=== PATIENT | male | born 1960 | race Caucasian/White ===

== ENCOUNTER 2016-12-21 10:34 | Inpatient (IN) | payer OTHER ==
[2016-12-21] MEDS ORDERED: LANTUS SC SCH (12:32)
[2016-12-21] MEDS: NS 1000 ML 1,000 ML IV SCH ×2 (12:48→20:23)
[2016-12-21 12:50] LABS: ABG ALLEN TEST POS; ABG BASE EXCESS 2.4 mmol/L (-2.0-2.0); ABG HCO3 26.4 mmol/L (22-26)
[2016-12-21 13:30] LABS: BASOPHILS # (AUTO) 0.1 X10^3/uL (0.0-0.1); BASOPHILS % (AUTO) 0.7 % (0.2-1.0); EOSINOPHILS # (AUTO) 0.1 x10^3/uL (0.0-0.2); EOSINOPHILS % (AUTO) 1.2 % (0.9-2.9); HEMATOCRIT 39.4 % (42.0-54.0); LYMPHOCYTES # (AUTO) 2.4 X10^3/uL (1.3-2.9); LYMPHOCYTES % (AUTO) 28.5 % (21.0-51.0); MEAN CORPUSCULAR HEMOGLOBIN 30.3 pg (27.0-34.0); MEAN CORPUSCULAR HGB CONC 35.5 g/dL (33.0-35.0); MEAN CORPUSCULAR VOLUME 85.4 fL (80.0-100.0); MEAN PLATELET VOLUME 7.8 fL (7.4-11.0); MONOCYTES # (AUTO) 0.8 x10^3/uL (0.3-0.8); NEUTROPHILS % (AUTO) 60.6 % (42.0-75.0); PLATELET COUNT 207 X10^3/uL (150.0-450.0); RED BLOOD COUNT 4.61 X10^6/uL (4.7-6.0); WHITE BLOOD COUNT 8.3 X10^3/uL (3.6-10.0)
[2016-12-21 13:44] LABS: ALANINE AMINOTRANSFERASE 28 Units/L (12-78); ALBUMIN 3.3 g/dL (3.4-5.0); ALKALINE PHOSPHATASE 87 Units/L (46-116); ASPARTATE AMINO TRANSFERASE 13 Units/L (15-37); BLOOD UREA NITROGEN 24 mg/dL (7-18); CALCIUM 8.7 mg/dL (8.5-10.1); CARBON DIOXIDE 28.4 mmol/L (21-32); CHLORIDE 100 mmol/L (98-107); COR CA(FOR HYPOALB) 9.3 mg/dL (8.5-10.1); COR NA(FOR HYPERGLY) 142 mmol/L (136-145); CREATININE 1.28 mg/dL (0.70-1.30); GLUCOSE 389 mg/dL (65-99); SODIUM 135 mmol/L (136-145); eGFR BLACK RACES > 60 (>60); eGFR NON BLACK RACES > 60 (>60)
[2016-12-21] MEDS: ZOFRAN INJ 4 MG VIAL IVP SCH ×3 (13:56→23:49)
[2016-12-21] MEDS: PEPCID 20 MG IV PREMIX* 20 MG/50 ML BAG IV SCH ×2 (13:56→20:23)
[2016-12-21] MEDS: PROTONIX INJ 40 MG VIAL IVP SCH ×2 (13:56→20:23)
[2016-12-21] MEDS: NORCO 10/325 TAB PO PRN ×2 (15:25→21:38)
[2016-12-21] MEDS ORDERED: PREVNAR 13 IM ONE (16:00)
[2016-12-21] MEDS ORDERED: CATAPRES-TTS-2 TD SCH (16:00)
[2016-12-21 16:11] LABS: BILIRUBIN,URINE NEGATIVE (NEGATIVE); BLOOD/HEMOGLOBIN,URINE NEGATIVE (NEGATIVE); GLUCOSE, URINE 4+ (NEGATIVE); KETONES,URINE 1+ (NEGATIVE); LEUKOCYTE ESTERASE ,URINE NEGATIVE (NEGATIVE); NITRITES,URINE NEGATIVE (NEGATIVE); PROTEIN,URINE 3+ (NEGATIVE); UROBILINOGEN,URINE NORMAL (NORMAL)
[2016-12-21] MEDS ORDERED: ULTRAM PO PRN (16:11)
[2016-12-21 16:18] LABS: APPEARANCE,URINE CLEAR (CLEAR); BACTERIA,URINE TRACE /HPF (NEGATIVE); COLOR,URINE YELLOW (YELLOW); RBC,URINE NONE SEEN /HPF (NEGATIVE); SQUAMOUS EPITHELIAL CELL,UR RARE /HPF (NEGATIVE)
[2016-12-21 16:26] LABS: AMYLASE 38 Units/L (25-115); LIPASE 224 Units/L (73-393)
[2016-12-21] MEDS: HumuLIN R SUBCUT PRN (17:15)
--- NOTE | 2016-12-21 17:33 | DR.UPDATE ---
H&P Update History and Physical Update: was seen in our office today. A H&P was completed prior to admission. Patient has been seen and examined with no changes noted. Changes noted: NO Yes with the following:
[2016-12-21] MEDS ORDERED: NS 100 ML IV 100 ML IV ONE (18:51)
[2016-12-21] MEDS: SNACK - Diabetic Appropriate PO SCH (19:53)
--- NOTE | 2016-12-21 19:57 | CT ---
CT abdomen and pelvis with contrast Indication: Abdominal pain with constipation and diarrhea. Nausea. Technique: Helical images through the abdomen and pelvis after IV and oral contrast. Coronal and sag ittal reformats provided. Comparison: No similar priors currently available. Review of bone windows shows minimal hip degenerative change without destructive osseous lesion. Finch ited images through lower chest shows Coronary artery calcifications, fairly pronounced. Heart size is prominent. Abdomen: Numerous hepatic cysts are noted, most pronounced in the left lobe of the liver. Gallbladde r is absent. Numerous bilateral renal cysts are noted, with contrast being excreted normally by the kidneys otherwise. Extensive colonic diverticulosis is seen without convincing evidence of acute div erticulitis. Appendix is normal. Vasculature shows scattered plaque. The spleen, stomach, pancreas, adrenal glands and small bowel are normal without obstruction to the flow of contrast. Small fat con taining umbilical hernia noted. Pelvis: Urinary bladder and rectum are normal. Prostate gland is normal. Impression: 1. No acute abnormality to explain the patient's symptoms. Noninflamed numerous colonic diverticula noted. 2. Borderline enlarged heart with extensive Coronary artery calcifications. 3. Numerous renal cysts and hepatic cyst. Autosomal dominant polycystic kidney disease is possible. Reported By:
[2016-12-21] MEDS: LYRICA CAP 50 MG PO SCH (20:22)
[2016-12-21] MEDS: COZAAR PO SCH (20:22)
[2016-12-21] MEDS: ZANTAC PO SCH (20:23)
[2016-12-21] MEDS: ZOCOR TAB 40 MG PO SCH (20:23)
[2016-12-21] MEDS ORDERED: MILK OF MAGNESIA PO PRN (20:53)
[2016-12-21] MEDS ORDERED: COLACE CAP 100 MG PO PRN (20:53)
[2016-12-21] MEDS ORDERED: GLUCOPHAGE PO SCH (21:00)
[2016-12-21] MEDS ORDERED: PATIENT'S HOME MEDICATION (Losartan Potassium [Cozaar] 50 MG) PO SCH (21:00)
[2016-12-21] MEDS: INDOCIN CAP 25 MG PO SCH (21:38)
[2016-12-22] MEDS: INDOCIN CAP 25 MG PO SCH (05:07)
[2016-12-22] MEDS: NORCO 10/325 TAB PO PRN ×2 (05:20→17:00)
[2016-12-22] MEDS: NS 1000 ML 1,000 ML IV SCH ×3 (05:30→20:40)
[2016-12-22] MEDS: ZOFRAN INJ 4 MG VIAL IVP SCH ×3 (05:31→17:56)
[2016-12-22 06:07] LABS: ALANINE AMINOTRANSFERASE 28 Units/L (12-78); ALBUMIN 3.1 g/dL (3.4-5.0); ALKALINE PHOSPHATASE 85 Units/L (46-116); ASPARTATE AMINO TRANSFERASE 20 Units/L (15-37); BLOOD UREA NITROGEN 16 mg/dL (7-18); CALCIUM 8.4 mg/dL (8.5-10.1); CHLORIDE 105 mmol/L (98-107); COR CA(FOR HYPOALB) 9.1 mg/dL (8.5-10.1); CREATININE 0.94 mg/dL (0.70-1.30); GLUCOSE 70 mg/dL (65-99); SODIUM 140 mmol/L (136-145); TOTAL PROTEIN 6.8 g/dL (6.4-8.2); eGFR BLACK RACES > 60 (>60); eGFR NON BLACK RACES > 60 (>60)
[2016-12-22 06:11] LABS: BASOPHILS % (AUTO) 0.4 % (0.2-1.0); EOSINOPHILS # (AUTO) 0.2 x10^3/uL (0.0-0.2); EOSINOPHILS % (AUTO) 2.2 % (0.9-2.9); HEMATOCRIT 40.4 % (42.0-54.0); HEMOGLOBIN 14.2 g/dL (13.5-18.0); LYMPHOCYTES # (AUTO) 4.1 X10^3/uL (1.3-2.9); LYMPHOCYTES % (AUTO) 37.4 % (21.0-51.0); MEAN CORPUSCULAR HEMOGLOBIN 30.3 pg (27.0-34.0); MEAN CORPUSCULAR HGB CONC 35.1 g/dL (33.0-35.0); MEAN CORPUSCULAR VOLUME 86.2 fL (80.0-100.0); MEAN PLATELET VOLUME 8.1 fL (7.4-11.0); MONOCYTES # (AUTO) 1.2 x10^3/uL (0.3-0.8); MONOCYTES % (AUTO) 10.5 % (0.0-13.0); NEUTROPHILS # (AUTO) 5.4 x10^3/uL (2.2-4.8); NEUTROPHILS % (AUTO) 49.5 % (42.0-75.0); PLATELET COUNT 215 X10^3/uL (150.0-450.0); RED BLOOD COUNT 4.69 X10^6/uL (4.7-6.0); RED CELL DISTRIBUTION WIDTH 13.2 % (11.6-16.5)
[2016-12-22 07:21] VITALS: BMI 41.0
[2016-12-22] MEDS: ZANTAC PO SCH (08:37)
[2016-12-22] MEDS: COZAAR PO SCH ×2 (08:38→09:40)
[2016-12-22] MEDS: PEPCID 20 MG IV PREMIX* 20 MG/50 ML BAG IV SCH ×2 (08:38→20:34)
[2016-12-22] MEDS: PROTONIX INJ 40 MG VIAL IVP SCH ×2 (08:38→20:25)
[2016-12-22] MEDS ORDERED: PHENERGAN INJ 25 MG IM PRN (09:04)
[2016-12-22] MEDS: PROCARDIA XL PO SCH (09:40)
[2016-12-22] MEDS ORDERED: PHARMACY CONSULT - TPN XX SCH (10:00)
[2016-12-22] MEDS: PROCALAMINE 3 % 1,000 ML IV SCH (14:07)
[2016-12-22] MEDS: SNACK - Diabetic Appropriate PO SCH (20:26)
[2016-12-22] MEDS: ZOCOR TAB 40 MG PO SCH ×2 (20:36→20:37)
[2016-12-22] MEDS: LYRICA CAP 50 MG PO SCH (20:37)
[2016-12-22] MEDS ORDERED: LANTUS SC SCH ×2 (21:00)
[2016-12-22] MEDS: CHECK PATCH XX SCH (21:06)
--- NOTE | 2016-12-22 21:31 | PCM.PROG ---
Progress Note - Progress Note for Day of Date: 12/22/16 - Subjective Subjective: IS ALERT AND ORIENTED ON MORNING ROUNDS. HE IS SITTING UP IN BED WITH AT BEDSIDE. HE CONTINUES WITH COMPLAINTS OF NAUSEA, VOMITING, AND DIFFUSE ABDOMINAL PAIN. HE DENIES DIARRHEA. LUNGS ARE CLEAR BILATERALLY TO AUSCULTATION. BOWEL SOUNDS ARE NORMAL IN ALL QUADRANTS. VITALS THIS AM ARE 98.9- 81-15-99%-172/96. CBC WNL EXCEPT WBC 11.0, RBC 4.69, HCT 40.4. CMP WNL EXCEPT CALCIUM 8.4, ALBUMIN 3.1. H-PYLORI POSITIVE. CT OBTAINED YESTERDAY REPORTED NO ACUTE ABNORMALITY, NONINFLAMED NUMEROUS COLONIC DIVERTICULA, BORDERLINE ENLARGED HEART WITH EXTENSIVE CORONARY ARTERY CALCIFICATIONS, NUMEROUS RENAL CYST AND HEPATIC CYST. WE WILL DECREASE LANTUS TO 25 UNITS AT HS, START TPN, PHENERGAN 25MG IM, AND ORDER A GASTRIC EMPTY SCAN ON TUESDAY. WE PLAN TO RECHECK LABS AND FOLLOW UP WITH PATIENT IN AM. - Past Medical Family Social History Past Med/Fam/Surg Hx: No changes since H&P Allergies: Allergies No Known Drug Allergies Allergy (Verified 12/21/16 12:57) - Review of Systems ROS: No change since H&P - Vital Signs and I&O's Vital Signs: Temperature 97.7 F Pulse Rate [Right Brachial] 84 Respiratory Rate 21 Blood Pressure [Right Arm] 159/87 O2 Sat by Pulse Oximetry 99 Intake and Output: Intake & Output 12/20/16 12/21/16 12/22/16 12/23/16 11:59 11:59 11:59 11:59 Intake Total 2991 1975 Output Total 1500 900 Balance 1491 1075 - Physical Exam Oriented: Normal Eyes: Normal Ear: Normal Nose: Normal Throat: Normal Respiratory: Normal Cardiovascular: Normal : Normal Palpation: Normal Tenderness: Diffuse, Mild. negative: Normal, RUQ, RLQ, LUQ, LLQ, Epigastric, Periumbilical, Suprapubic, Moderate, Severe, Rebound, Guarding, Rigidity, Other Skin: Normal. negative: Decreased Turgur, Rash, Papular, Macular, Maculopapular , Vesicular, Pustular, Petechial, Red, Tender, Hot, Diaphoresis, Wound, Bruising , Ecchymosis, Other Musculoskeletal: Normal. negative: Right, Left, Shoulder, Clavicle, Arm, Elbow , Forearm, Wrist, Hand, Hip, Thigh, Knee, Leg, Ankle, Foot, Back:Thoracic, Back: Lumbar, Back:Midline, Back:Paraspinous, Pelvis, Swelling, Tender, Deformity, Pulse Deficit, Motor Deficit, Sensory Deficit, Instability, Crepitance Psychiatric: Normal. negative: Anxiety, Depression, Agitation, Other Mood Description: Calm. negative: Angry, Apathetic, Depressed, Fearful, Flat, Happy, Hostile, Sad, Suspicious, Withdrawn, Anxious, Appropriate, Labile Affect: Normal. negative: Angry, Anxious, Depressed, Flat, Hysterical, Quiet, Violent Speech Pattern: Clear, Appropriate - Laboratory and Diagnostics Result Diagrams: 12/23/16 05:30 12/23/16 05:30 Labs: Laboratory WBC 11.0 X10^3/uL (3.6-10.0) H 12/22/16 05:13 RBC 4.69 X10^6/uL (4.7-6.0) L 12/22/16 05:13 Hgb 14.2 g/dL (13.5-18.0) 12/22/16 05:13 Hct 40.4 % (42.0-54.0) L 12/22/16 05:13 MCV 86.2 fL (80.0-100.0) 12/22/16 05:13 MCH 30.3 pg (27.0-34.0) 12/22/16 05:13 MCHC 35.1 g/dL (33.0-35.0) H 12/22/16 05:13 RDW 13.2 % (11.6-16.5) 12/22/16 05:13 Plt Count 215 X10^3/uL (150.0-450.0) 12/22/16 05:13 MPV 8.1 fL (7.4-11.0) 12/22/16 05:13 Neut % 49.5 % (42.0-75.0) 12/22/16 05:13 Lymph % 37.4 % (21.0-51.0) 12/22/16 05:13 [place] % 10.5 % (0.0-13.0) 12/22/16 05:13 Eos % 2.2 % (0.9-2.9) 12/22/16 05:13 Baso % 0.4 % (0.2-1.0) 12/22/16 05:13 Neut # 5.4 x10^3/uL (2.2-4.8) H 12/22/16 05:13 Lymph # 4.1 X10^3/uL (1.3-2.9) H 12/22/16 05:13 [place] # 1.2 x10^3/uL (0.3-0.8) H 12/22/16 05:13 Eos # 0.2 x10^3/uL (0.0-0.2) 12/22/16 05:13 Baso # 0.0 X10^3/uL (0.0-0.1) 12/22/16 05:13 Absolute Nucleated RBC 0.1 /100WBC 12/22/16 05:13 Sample Site Rr 12/21/16 12:45 ABG pH 7.450 (7.35-7.45) 12/21/16 12:45 ABG pCO2 38.0 mmHg (35.0-45.0) 12/21/16 12:45 ABG pO2 91.0 mmHg (80.0-100.0) 12/21/16 12:45 ABG HCO3 26.4 mmol/L (22-26) H 12/21/16 12:45 ABG O2 Saturation 97.0 % (90-100) 12/21/16 12:45 ABG Base Excess 2.4 mmol/L (-2.0-2.0) H 12/21/16 12:45 Sandip Test Pos 12/21/16 12:45 A-a Gradient 11.0 mmHg 12/21/16 12:45 FiO2 21.000 12/21/16 12:45 Blood Gas Comments Pt ann well. cdn 12/21/16 12:45 Sodium 140 mmol/L (136-145) 12/22/16 05:13 Corrected Sodium TNP 12/22/16 05:13 Potassium 4.3 mmol/L (3.5-5.1) 12/22/16 05:13 Chloride 105 mmol/L (98-107) 12/22/16 05:13 Carbon Dioxide 30.0 mmol/L (21-32) 12/22/16 05:13 BUN 16 mg/dL (7-18) 12/22/16 05:13 Creatinine 0.94 mg/dL (0.70-1.30) 12/22/16 05:13 Est GFR (MDRD) Af Amer > 60 (>60) 12/22/16 05:13 Est GFR (MDRD) Non-Af > 60 (>60) 12/22/16 05:13 Glucose 70 mg/dL (65-99) 12/22/16 05:13 Calcium 8.4 mg/dL (8.5-10.1) L 12/22/16 05:13 Corrected Calcium 9.1 mg/dL (8.5-10.1) 12/22/16 05:13 Total Bilirubin 0.30 mg/dL (0.2-1.0) 12/22/16 05:13 AST 20 Units/L (15-37) 12/22/16 05:13 ALT 28 Units/L (12-78) 12/22/16 05:13 Alkaline Phosphatase 85 Units/L (46-116) 12/22/16 05:13 Total Protein 6.8 g/dL (6.4-8.2) 12/22/16 05:13 Albumin 3.1 g/dL (3.4-5.0) L 12/22/16 05:13 Globulin 3.7 g/dL (2.5-4.5) 12/22/16 05:13 Albumin/Globulin Ratio 0.8 Ratio (1.1-2.1) L 12/22/16 05:13 Amylase 38 Units/L (25-115) 12/21/16 13:15 Lipase 224 Units/L (73-393) 12/21/16 13:15 Specimen Type Clean catch urine 12/21/16 16:01 Urine Color Yellow (YELLOW) 12/21/16 16:01 Urine Appearance Clear (CLEAR) 12/21/16 16:01 Urine pH 7.0 (5.0 - 8.0) 12/21/16 16:01 Ur Specific [place] 1.010 (1.000-1.030) 12/21/16 16:01 Urine Protein 3+ (NEGATIVE) 12/21/16 16:01 Urine Glucose (UA) 4+ (NEGATIVE) 12/21/16 16:01 Urine Ketones 1+ (NEGATIVE) 12/21/16 16:01 Urine Occult Blood Negative (NEGATIVE) 12/21/16 16:01 Urine Nitrite Negative (NEGATIVE) 12/21/16 16:01 Urine Bilirubin Negative (NEGATIVE) 12/21/16 16:01 Urine Acetone Small (NEGATIVE) 12/21/16 16:01 Urine Urobilinogen Normal (NORMAL) 12/21/16 16:01 Ur Leukocyte Esterase Negative (NEGATIVE) 12/21/16 16:01 Urine RBC None seen /HPF (NEGATIVE) 12/21/16 16:01 Urine WBC None seen /HPF (NEGATIVE) 12/21/16 16:01 Ur Squamous Epith Cells Rare /HPF (NEGATIVE) 12/21/16 16:01 Urine Bacteria Trace /HPF (NEGATIVE) 12/21/16 16:01 Ur Culture Indicated? No/not indicated 12/21/16 16:01 H. pylori IgG Antibody Positive (NEGATIVE) A 12/21/16 13:15
[2016-12-23] MEDS: ZOFRAN INJ 4 MG VIAL IVP SCH ×4 (01:38→17:37)
[2016-12-23] MEDS: NORCO 10/325 TAB PO PRN ×3 (01:41→16:18)
[2016-12-23 02:16] LABS: CRYPTOSPORIDIUM PARVUM ANTIGEN NEGATIVE (NEGATIVE); GIARDIA LAMBLIA ANTIGEN NEGATIVE (NEGATIVE)
[2016-12-23] MEDS: NS 1000 ML 1,000 ML IV SCH ×3 (05:50→19:55)
[2016-12-23 06:12] LABS: BASOPHILS % (AUTO) 0.5 % (0.2-1.0); EOSINOPHILS # (AUTO) 0.2 x10^3/uL (0.0-0.2); EOSINOPHILS % (AUTO) 1.7 % (0.9-2.9); HEMATOCRIT 37.2 % (42.0-54.0); HEMOGLOBIN 13.3 g/dL (13.5-18.0); LYMPHOCYTES # (AUTO) 2.2 X10^3/uL (1.3-2.9); LYMPHOCYTES % (AUTO) 22.9 % (21.0-51.0); MEAN CORPUSCULAR HEMOGLOBIN 30.7 pg (27.0-34.0); MEAN CORPUSCULAR HGB CONC 35.9 g/dL (33.0-35.0); MEAN CORPUSCULAR VOLUME 85.4 fL (80.0-100.0); MEAN PLATELET VOLUME 7.7 fL (7.4-11.0); MONOCYTES # (AUTO) 1.1 x10^3/uL (0.3-0.8); NEUTROPHILS # (AUTO) 6.1 x10^3/uL (2.2-4.8); NEUTROPHILS % (AUTO) 63.9 % (42.0-75.0); PLATELET COUNT 195 X10^3/uL (150.0-450.0); RED BLOOD COUNT 4.35 X10^6/uL (4.7-6.0); RED CELL DISTRIBUTION WIDTH 13.2 % (11.6-16.5); WHITE BLOOD COUNT 9.6 X10^3/uL (3.6-10.0)
[2016-12-23 06:47] LABS: ALANINE AMINOTRANSFERASE 57 Units/L (12-78); ALBUMIN 2.9 g/dL (3.4-5.0); ALKALINE PHOSPHATASE 145 Units/L (46-116); ASPARTATE AMINO TRANSFERASE 83 Units/L (15-37); BLOOD UREA NITROGEN 10 mg/dL (7-18); CARBON DIOXIDE 28.8 mmol/L (21-32); CHLORIDE 106 mmol/L (98-107); COR CA(FOR HYPOALB) 8.9 mg/dL (8.5-10.1); COR NA(FOR HYPERGLY) 140 mmol/L (136-145); CREATININE 0.89 mg/dL (0.70-1.30); GLUCOSE 174 mg/dL (65-99); SODIUM 138 mmol/L (136-145); TOTAL PROTEIN 6.3 g/dL (6.4-8.2); eGFR BLACK RACES > 60 (>60); eGFR NON BLACK RACES > 60 (>60)
[2016-12-23] MEDS: PROTONIX INJ 40 MG VIAL IVP SCH ×2 (08:26→21:08)
[2016-12-23] MEDS: COZAAR PO SCH (08:26)
[2016-12-23] MEDS: PROCARDIA XL PO SCH (08:26)
[2016-12-23] MEDS: PEPCID 20 MG IV PREMIX* 20 MG/50 ML BAG IV SCH ×2 (08:26→21:08)
[2016-12-23] MEDS: CHECK PATCH XX SCH ×2 (08:27→21:00)
[2016-12-23] MEDS ORDERED: LANTUS SC SCH (10:12)
--- NOTE | 2016-12-23 11:15 | PCM.PROG ---
Progress Note - Progress Note for Day of Date: 12/23/16 - Subjective Subjective: IS ALERT AND ORIENTED ON MORNING ROUNDS. HE IS SITTING UP IN BED WITH AT BEDSIDE. HE CONTINUES WITH COMPLAINTS OF ABDOMINAL PAIN BUT REPORTS THAT NAUSEA HAS SUBSIDED SOME. HE DENIES DIARRHEA. LUNGS ARE CLEAR BILATERALLY TO AUSCULTATION. BOWEL SOUNDS ARE NORMAL IN ALL QUADRANTS. VITALS THIS AM ARE 98.4-74-14-97%-141/82. CBC WNL EXCEPT RBC 4.35, HGB 13.3, HCT 40.4. CMP WNL EXCEPT GLUCOSE 174, CALCIUM 8.0, ALKALINE PHOSPHATASE 145, ALBUMIN 2.9. WILL BE TAKING PATIENT [place] FOR AN EGD THIS MORNING. WE WILL INCREASE LANTUS TO 30 UNITS AT HS. WE PLAN TO RECHECK LABS AND FOLLOW UP WITH PATIENT IN AM. - Past Medical Family Social History Past Med/Fam/Surg Hx: No changes since H&P Allergies: Allergies No Known Drug Allergies Allergy (Verified 12/21/16 12:57) - Review of Systems ROS: No change since H&P - Vital Signs and I&O's Vital Signs: Temperature 97.0 F Pulse Rate [Right Brachial] 72 Respiratory Rate 17 Blood Pressure [Right Arm] 141/83 O2 Sat by Pulse Oximetry 97 Intake and Output: Intake & Output 12/20/16 12/21/16 12/22/16 12/23/16 11:59 11:59 11:59 11:59 Intake Total 2991 3235 Output Total 1500 900 Balance 1491 2335 - Physical Exam Oriented: Normal Eyes: Normal Ear: Normal Nose: Normal Throat: Normal Respiratory: Normal Cardiovascular: Normal : Normal Auscultation: Bowel Sounds: Normal Palpation: Normal Tenderness: Diffuse, Mild. negative: Normal, RUQ, RLQ, LUQ, LLQ, Epigastric, Periumbilical, Suprapubic, Moderate, Severe, Rebound, Guarding, Rigidity, Other Skin: Normal. negative: Decreased Turgur, Rash, Papular, Macular, Maculopapular , Vesicular, Pustular, Petechial, Red, Tender, Hot, Diaphoresis, Wound, Bruising , Ecchymosis, Other Musculoskeletal: Normal. negative: Right, Left, Shoulder, Clavicle, Arm, Elbow , Forearm, Wrist, Hand, Hip, Thigh, Knee, Leg, Ankle, Foot, Back:Thoracic, Back: Lumbar, Back:Midline, Back:Paraspinous, Pelvis, Swelling, Tender, Deformity, Pulse Deficit, Motor Deficit, Sensory Deficit, Instability, Crepitance Psychiatric: Normal. negative: Anxiety, Depression, Agitation, Other Mood Description: Calm. negative: Angry, Apathetic, Depressed, Fearful, Flat, Happy, Hostile, Sad, Suspicious, Withdrawn, Anxious, Appropriate, Labile Affect: Normal. negative: Angry, Anxious, Depressed, Flat, Hysterical, Quiet, Violent Speech Pattern: Clear, Appropriate - Laboratory and Diagnostics Result Diagrams: 12/23/16 05:30 12/23/16 05:30 Labs: 12/23/16 01:02 Stool - Final Laboratory WBC 9.6 X10^3/uL (3.6-10.0) 12/23/16 05:30 RBC 4.35 X10^6/uL (4.7-6.0) L 12/23/16 05:30 Hgb 13.3 g/dL (13.5-18.0) L 12/23/16 05:30 Hct 37.2 % (42.0-54.0) L 12/23/16 05:30 MCV 85.4 fL (80.0-100.0) 12/23/16 05:30 MCH 30.7 pg (27.0-34.0) 12/23/16 05:30 MCHC 35.9 g/dL (33.0-35.0) H 12/23/16 05:30 RDW 13.2 % (11.6-16.5) 12/23/16 05:30 Plt Count 195 X10^3/uL (150.0-450.0) 12/23/16 05:30 MPV 7.7 fL (7.4-11.0) 12/23/16 05:30 Neut % 63.9 % (42.0-75.0) 12/23/16 05:30 Lymph % 22.9 % (21.0-51.0) 12/23/16 05:30 [place] % 11.0 % (0.0-13.0) 12/23/16 05:30 Eos % 1.7 % (0.9-2.9) 12/23/16 05:30 Baso % 0.5 % (0.2-1.0) 12/23/16 05:30 Neut # 6.1 x10^3/uL (2.2-4.8) H 12/23/16 05:30 Lymph # 2.2 X10^3/uL (1.3-2.9) 12/23/16 05:30 [place] # 1.1 x10^3/uL (0.3-0.8) H 12/23/16 05:30 Eos # 0.2 x10^3/uL (0.0-0.2) 12/23/16 05:30 Baso # 0.0 X10^3/uL (0.0-0.1) 12/23/16 05:30 Absolute Nucleated RBC 0.0 /100WBC 12/23/16 05:30 Sample Site Rr 12/21/16 12:45 ABG pH 7.450 (7.35-7.45) 12/21/16 12:45 ABG pCO2 38.0 mmHg (35.0-45.0) 12/21/16 12:45 ABG pO2 91.0 mmHg (80.0-100.0) 12/21/16 12:45 ABG HCO3 26.4 mmol/L (22-26) H 12/21/16 12:45 ABG O2 Saturation 97.0 % (90-100) 12/21/16 12:45 ABG Base Excess 2.4 mmol/L (-2.0-2.0) H 12/21/16 12:45 Sandip Test Pos 12/21/16 12:45 A-a Gradient 11.0 mmHg 12/21/16 12:45 FiO2 21.000 12/21/16 12:45 Blood Gas Comments Pt ann well. cdn 12/21/16 12:45 Sodium 138 mmol/L (136-145) 12/23/16 05:30 Corrected Sodium 140 mmol/L (136-145) 12/23/16 05:30 Potassium 4.5 mmol/L (3.5-5.1) 12/23/16 05:30 Chloride 106 mmol/L (98-107) 12/23/16 05:30 Carbon Dioxide 28.8 mmol/L (21-32) 12/23/16 05:30 BUN 10 mg/dL (7-18) 12/23/16 05:30 Creatinine 0.89 mg/dL (0.70-1.30) 12/23/16 05:30 Est GFR (MDRD) Af Amer > 60 (>60) 12/23/16 05:30 Est GFR (MDRD) Non-Af > 60 (>60) 12/23/16 05:30 Glucose 174 mg/dL (65-99) H 12/23/16 05:30 Calcium 8.0 mg/dL (8.5-10.1) L 12/23/16 05:30 Corrected Calcium 8.9 mg/dL (8.5-10.1) 12/23/16 05:30 Total Bilirubin 0.30 mg/dL (0.2-1.0) 12/23/16 05:30 AST 83 Units/L (15-37) H 12/23/16 05:30 ALT 57 Units/L (12-78) 12/23/16 05:30 Alkaline Phosphatase 145 Units/L (46-116) H 12/23/16 05:30 Total Protein 6.3 g/dL (6.4-8.2) L 12/23/16 05:30 Albumin 2.9 g/dL (3.4-5.0) L 12/23/16 05:30 Globulin 3.4 g/dL (2.5-4.5) 12/23/16 05:30 Albumin/Globulin Ratio 0.9 Ratio (1.1-2.1) L 12/23/16 05:30 Amylase 38 Units/L (25-115) 12/21/16 13:15 Lipase 224 Units/L (73-393) 12/21/16 13:15 Specimen Type Clean catch urine 12/21/16 16:01 Urine Color Yellow (YELLOW) 12/21/16 16:01 Urine Appearance Clear (CLEAR) 12/21/16 16:01 Urine pH 7.0 (5.0 - 8.0) 12/21/16 16:01 Ur Specific [place] 1.010 (1.000-1.030) 12/21/16 16:01 Urine Protein 3+ (NEGATIVE) 12/21/16 16:01 Urine Glucose (UA) 4+ (NEGATIVE) 12/21/16 16:01 Urine Ketones 1+ (NEGATIVE) 12/21/16 16:01 Urine Occult Blood Negative (NEGATIVE) 12/21/16 16:01 Urine Nitrite Negative (NEGATIVE) 12/21/16 16:01 Urine Bilirubin Negative (NEGATIVE) 12/21/16 16:01 Urine Acetone Small (NEGATIVE) 12/21/16 16:01 Urine Urobilinogen Normal (NORMAL) 12/21/16 16:01 Ur Leukocyte Esterase Negative (NEGATIVE) 12/21/16 16:01 Urine RBC None seen /HPF (NEGATIVE) 12/21/16 16:01 Urine WBC None seen /HPF (NEGATIVE) 12/21/16 16:01 Ur Squamous Epith Cells Rare /HPF (NEGATIVE) 12/21/16 16:01 Urine Bacteria Trace /HPF (NEGATIVE) 12/21/16 16:01 Ur Culture Indicated? No/not indicated 12/21/16 16:01 Stool Description 10g brn liquid 12/23/16 01:02 Stl C. diff Tox B Gene Negative (NEGATIVE) 12/23/16 01:02 Stl C. diff [id number] Negative (NEGATIVE) 12/23/16 01:02 Cryptosporid parvum Ag Negative (NEGATIVE) 12/23/16 01:02 E. histolytica Antigen Negative (NEGATIVE) 12/23/16 01:02 Giardia lamblia Ag Negative (NEGATIVE) 12/23/16 01:02 H. pylori IgG Antibody Positive (NEGATIVE) A 12/21/16 13:15 - Plan (1) Hyperglycemia Status: Acute Plan: LANTUS 30UNITS AT HS, SLIDING SCALE INSULIN, CONTINUE TO MONITOR (2) Nausea & vomiting Status: Acute Qualifiers: Vomiting type: unspecified Vomiting Intractability: V Plan: PHENERGAN 25MG IM PRN, ZOFRAN 8MG IVP Q6H PRN, CONTINUE TO MONITOR (3) Abdominal pain Status: Acute Qualifiers: Abdominal location: generalized Qualified Code(s): R10.84 - Generalized abdominal pain Plan: ULTRAM 50MG TID PRN, CONTINUE TO MONITOR (4) Hypertension Status: Acute Qualifiers: Hypertension type: essential hypertension Qualified Code(s): I10 - Essential (primary) hypertension Plan: CATAPRES PATCH, CONTINUE COZAAR, CONTINUE PROCARDIA, CONTINUE TO MONITOR (5) Hyperlipidemia Status: Chronic Qualifiers: Hyperlipidemia type: mixed hyperlipidemia Qualified Code(s): E78.2 - Mixed hyperlipidemia Plan: CONTINUE ZOCOR, CONTINUE TO MONITOR
[2016-12-23] MEDS ORDERED: DIPRIVAN VIAL 20 ML ONE (11:59)
[2016-12-23] MEDS: HumuLIN R SUBCUT PRN ×2 (16:17→20:58)
[2016-12-23] MEDS: PROCALAMINE 3 % 1,000 ML IV SCH (17:05)
[2016-12-23] MEDS: SNACK - Diabetic Appropriate PO SCH (19:56)
[2016-12-23] MEDS: MORPHINE SULFATE INJ 2 MG IVP PRN (20:15)
[2016-12-23] MEDS: ZOCOR TAB 40 MG PO SCH (21:08)
[2016-12-23] MEDS: LYRICA CAP 50 MG PO SCH (21:08)
[2016-12-24] MEDS: MORPHINE SULFATE INJ 2 MG IVP PRN ×2 (00:18→05:43)
[2016-12-24] MEDS: ZOFRAN INJ 4 MG VIAL IVP SCH ×3 (00:22→14:25)
[2016-12-24 06:18] LABS: BASOPHILS # (AUTO) 0.1 X10^3/uL (0.0-0.1); BASOPHILS % (AUTO) 0.8 % (0.2-1.0); EOSINOPHILS # (AUTO) 0.1 x10^3/uL (0.0-0.2); HEMATOCRIT 34.1 % (42.0-54.0); HEMOGLOBIN 12.3 g/dL (13.5-18.0); LYMPHOCYTES # (AUTO) 2.2 X10^3/uL (1.3-2.9); LYMPHOCYTES % (AUTO) 31.4 % (21.0-51.0); MEAN CORPUSCULAR HEMOGLOBIN 30.7 pg (27.0-34.0); MEAN CORPUSCULAR HGB CONC 36.2 g/dL (33.0-35.0); MEAN CORPUSCULAR VOLUME 84.8 fL (80.0-100.0); MEAN PLATELET VOLUME 7.8 fL (7.4-11.0); MONOCYTES # (AUTO) 0.7 x10^3/uL (0.3-0.8); MONOCYTES % (AUTO) 9.3 % (0.0-13.0); NEUTROPHILS % (AUTO) 56.5 % (42.0-75.0); PLATELET COUNT 128 X10^3/uL (150.0-450.0); RED BLOOD COUNT 4.02 X10^6/uL (4.7-6.0); RED CELL DISTRIBUTION WIDTH 13.5 % (11.6-16.5)
[2016-12-24 06:30] LABS: ALANINE AMINOTRANSFERASE 43 Units/L (12-78); ALBUMIN 2.8 g/dL (3.4-5.0); ALKALINE PHOSPHATASE 132 Units/L (46-116); ASPARTATE AMINO TRANSFERASE 23 Units/L (15-37); BLOOD UREA NITROGEN 9 mg/dL (7-18); CALCIUM 8.5 mg/dL (8.5-10.1); CARBON DIOXIDE 26.6 mmol/L (21-32); CHLORIDE 107 mmol/L (98-107); COR CA(FOR HYPOALB) 9.5 mg/dL (8.5-10.1); COR NA(FOR HYPERGLY) 142 mmol/L (136-145); CREATININE 0.91 mg/dL (0.70-1.30); GLUCOSE 165 mg/dL (65-99); SODIUM 140 mmol/L (136-145); TOTAL PROTEIN 6.2 g/dL (6.4-8.2); eGFR BLACK RACES > 60 (>60); eGFR NON BLACK RACES > 60 (>60)
[2016-12-24] MEDS: NS 1000 ML 1,000 ML IV SCH ×2 (07:03→14:17)
[2016-12-24] MEDS: COZAAR PO SCH (08:04)
[2016-12-24] MEDS: NORCO 10/325 TAB PO PRN (08:05)
[2016-12-24] MEDS: PROTONIX INJ 40 MG VIAL IVP SCH (08:05)
[2016-12-24] MEDS: PEPCID 20 MG IV PREMIX* 20 MG/50 ML BAG IV SCH (08:06)
[2016-12-24] MEDS: CHECK PATCH XX SCH (08:06)
[2016-12-24] MEDS: PROCARDIA XL PO SCH (08:06)
[2016-12-24] MEDS ORDERED: LANTUS SC SCH (10:17)
--- NOTE | 2016-12-24 11:17 | NM ---
HISTORY: Nausea, vomiting, abdominal pain. History of constipation. Study: Radionuclide gastric emptying scan Comparison: No priors Technique: patient was given 0.53 millicuries of 99 M technetium labeled sulfur colloid administered in eggs orally. Findings: Anterior and posterior scintigraphy of the abdomen was performed. The calculated time to half emptyi ng is 574 minutes, which is clearly outside the normal range. At the end of the examination ( 90 min utes), approximately 92% of the gastric contents is retained. IMPRESSION: Abnormal gastric emptying study as noted above. Reported By:
[2016-12-24] MEDS ORDERED: LEVSIN/MAALOX/LIDOC VISC PO SCH (13:00)
[2016-12-24 13:37] VITALS: BP 150/78
--- NOTE | 2016-12-26 22:50 | DR.CARTERD ---
- Discharge Summary for: Discharge Summary for Date of:: 12/24/16 - Admission Date Date of Admission: 12/21/16 - Admission Diagnoses Admission Diagnosis: (1) Hyperglycemia (2) Nausea & vomiting (3) Abdominal pain (4) Hypertension (5) Hyperlipidemia - Discharge Date Discharge Date: 12/24/16 - Discharge Diagnoses Discharge Diagnosis: (1) Moderaltely severe erosive gastritis (2) Gastroparesis (3) Hyperglycemia (4) Nausea & vomiting (5) Abdominal pain (6) Hypertension (7) Hyperlipidemia - Hospital Course Hospital Course: DAY ONE OF HOSPITAL STAY, PATIENT PRESENTED TO THE HOSPITAL A DIRECT ADMISSION FROM OUR OFFICE WITH REPORTS OF ABDOMINAL PAIN. PATIENT REPORTS PAIN STARTED ABOUT A MONTH AGO AND NOTED TO BE SEVERE IN SEVERITY. ASSOCIATED SYMPTOMS INCLUDE NAUSEA, VOMITING, DIARRHEA, POOR APPETITE, AND CONSTIPATION. PATIENT REPORTS PAIN IS LOCATED TO PERIUMBILICAL AREA AND IS DESCRIBED A CONSTANT ACHING, CRAMPING PAIN. PATIENT REPORTS HE HAS BEEN TAKING ZOFRAN AT HOME WITH MINIMAL IMPROVEMENT IN NAUSEA AND VOMITING. IN THE OFFICE PATIENT NOTED TO BE DIAPHORETIC WITH A BLOOD PRESSURE OF 193/109 AND WAS LATER RECHECKED AND NOTED TO BE 193/113. ON AUSCULTATION OF ABDOMINAL QUADRANTS PATIENT NOTED WITH HYPOACTIVE BOWEL SOUNDS THROUGHOUT. PATIENT NOTED WITH DIFFUSE ABDOMINAL TENDERNESS ON PALPATION. PATIENT ADMITTED TO THE HOSPITAL OBSERVATION AND A CONSULT WITH DR. SALEEM OBTAINED. DR. SALEEM RECOMMENDED AGGRESSIVE IV HYDRATION AND STARTED ON A CLEAR LIQUID DIET. PLANS WERE TO OBTAINED AN UPPER ENDOSCOPY AND SCHEDULE A LOWER ENDOSCOPY ON AN OUTPATIENT BASIS. PATIENT NOTED WITH AN ELEVATED BLOOD GLUCOSE ON ARRIVAL TO THE HOSPITAL OF 389 WITH A SMALL URINE ACETONE. DAY TWO OF HOSPITAL STAY, WAS ALERT AND ORIENTED ON MORNING ROUNDS. HE WAS SITTING UP IN BED WITH AT BEDSIDE. HE CONTINUED WITH COMPLAINTS OF NAUSEA, VOMITING, AND DIFFUSE ABDOMINAL PAIN. HE DENIED DIARRHEA. LUNGS WERE CLEAR BILATERALLY TO AUSCULTATION. BOWEL SOUNDS WERE NORMAL IN ALL QUADRANTS. VITALS WERE 98.9-81-15-99%-172/96. CBC WNL EXCEPT WBC 11.0, RBC 4.69, HCT 40.4. CMP WNL EXCEPT CALCIUM 8.4, ALBUMIN 3.1. H-PYLORI POSITIVE. CT OBTAINED YESTERDAY REPORTED NO ACUTE ABNORMALITY, NONINFLAMED NUMEROUS COLONIC DIVERTICULA, BORDERLINE ENLARGED HEART WITH EXTENSIVE CORONARY ARTERY CALCIFICATIONS, NUMEROUS RENAL CYST AND HEPATIC CYST. WE DECREASED LANTUS TO 25 UNITS AT HS, STARTED TPN, PHENERGAN 25MG IM, AND ORDERED A GASTRIC EMPTY SCAN. DAY THREE OF HOSPITAL STAY, WAS ALERT AND ORIENTED ON MORNING ROUNDS. HE WAS SITTING UP IN BED WITH AT BEDSIDE. HE CONTINUED WITH COMPLAINTS OF ABDOMINAL PAIN BUT REPORTED THAT NAUSEA HAD SUBSIDED SOME. HE DENIED DIARRHEA. LUNGS WERE CLEAR BILATERALLY TO AUSCULTATION. BOWEL SOUNDS WERE NORMAL IN ALL QUADRANTS. VITALS WERE 98.4-74-14-97%-141/82. CBC WNL EXCEPT RBC 4.35, HGB 13.3 , HCT 40.4. CMP WNL EXCEPT GLUCOSE 174, CALCIUM 8.0, ALKALINE PHOSPHATASE 145, ALBUMIN 2.9. PATIENT WAS SCHEDULED FOR AN EGD PER DR. SALEEM THIS DAY. WE INCREASED LANTUS TO 30 UNITS AT HS. WE PLANNED TO RECHECK LABS AND FOLLOW UP WITH PATIENT. DAY FOUR OF HOSPITAL STAY, EGD THE DAY PRIOR REPORTED MODERATELY SEVERE EROSIVE GASTRITIS, MILD DISTAL ESOPHAGITIS. BIOPSIES WERE TAKED WITH EGD. PATIENT TOLERATED PROCEDURE WELL. PATIENT HAD A GASTRIC EMPTYING STUDY AND IT REPORTED ABNORMAL GASTRIC EMPTYING STUDY WITH APPROXIMATELY 92% OF THE GASTRIC CONTENT RETAINED. WE PLANNED FOR DISCHARGE WITH PLANS FOR PATIENT TO FOLLOW UP WITH DR. SALEEM. WE PLANNED FOR DISCHARGE. INSTRUCTIONS FOR MEDICATIONS AND FOLLOW UP WERE GIVEN TO PATIENT AND FAMILY, BOTH VOICED UNDERSTANDING. PATIENT DISCHARGED HOME IN STABLE CONDITION WITH FAMILY. - Discharge Medications Discharge Medications: Aspirin [Adult Low Dose Aspirin EC] 1 tab PO DAILY 12/21/16 [History] Insulin Lispro (Humalog) [HumaLOG INSULIN 10 ML VIAL *] 1 unit SC PRN PRN [History] Losartan Potassium [LOSARTAN POTASSIUM 50 MG *] 1 tab PO BID 12/21/16 [History] Metformin HCl 1 tab PO BID 12/21/16 [History] Pregabalin [LYRICA 50 MG *] 1 tab PO HS 12/21/16 [History] Ranitidine HCl [ZANTAC TAB 150 MG *] 1 tab PO BID 12/21/16 [History] Simvastatin 1 tab PO DAILY 12/21/16 [History] Tramadol HCl [ULTRAM 50 MG *] 1 tab PO TID PRN 12/21/16 [History] Clonidine HCl [CATAPRES-TTS patch 0.2 mg/24 hr 7-day *] 1 each TD Q7D #4 tdsy [Rx] Erythromycin Base [Erythromycin] 250 mg PO TID #84 tablet 12/24/16 [Rx] Famotidine [Pepcid] 40 mg PO BID #60 tablet 12/24/16 [Rx] Gi Cocktail [LEVSIN/Maalox/Lidoc Visc (GI COCKTAIL) *] 10 ml PO QID #90 ml 12/24 [Rx] Hydrocodone-Acet 10/325 mg [[place] 10/325 Tab] 1 tab PO Q6H PRN #30 tab 12/24/16 [Rx] Insulin Glargine (Lantus) [LANTUS INSULIN 10 ML VIAL *] 33 units SC HS #10 ml [Rx] Nifedipine Ext Rel [PROCARDIA XL 30 MG *] 30 mg PO DAILY #30 tabcr 12/24/16 [Rx] Pantoprazole Sodium 40 mg [Protonix Tab 40 mg] 40 mg PO BID #60 tab 12/24/16 [Rx ] Promethazine HCl [PHENERGAN TAB 25 MG *] 25 mg PO Q6H PRN #20 tab 12/24/16 [Rx] - Discharge Disposition Discharge Disposition: PATIENT IS TO FOLLOW UP IN OUR OFFICE ON 12/27/[address] SALEEM ON 01/06/17.
== END 2016-12-24 14:45 | disposition home or self-care (01) | DRG 392 ==
LOC: UNDOADMOB 10:34 → ICU 10:34 → OBSVTOIN 12-22 08:30
PROVIDERS: ADMIT Internal Medicine; ATTEND Internal Medicine
PROC: 3E0234Z Introduction of Serum, Toxoid and Vaccine into Muscle, Percutaneous Approach (ICD-10-PCS; 2016-12-21)
PROC: 0DB88ZX Excision of Small Intestine, Via Natural or Artificial Opening Endoscopic, Diagnostic (ICD-10-PCS; 2016-12-23)
PROC: 0DB68ZX Excision of Stomach, Via Natural or Artificial Opening Endoscopic, Diagnostic (ICD-10-PCS; principal; 2016-12-23 17:15)
DX: K29.00 Acute gastritis without bleeding (principal); R10.84 Generalized abdominal pain; E11.65 Type 2 diabetes mellitus with hyperglycemia; R11.2 Nausea with vomiting, unspecified; R53.83 Other fatigue; E86.0 Dehydration; E55.9 Vitamin D deficiency, unspecified; K21.9 Gastro-esophageal reflux disease without esophagitis; R19.7 Diarrhea, unspecified; R10.13 Epigastric pain; B96.81 Helicobacter pylori [H. pylori] as the cause of diseases classified elsewhere; E78.2 Mixed hyperlipidemia; K31.84 Gastroparesis
CPT/HCPCS: 36415; 36600; 74177; 78264; 80053; 81001; 82009; 82150; 82803; 83690; 85025; 86677; 87045; 87328; 87329; 87336; 87427; 87493; 87899; 93005; A4222; B5200; C9113; S0028; A4217; G0378; J1815; J1817; J2270; J2405; J2550; J3490

== ENCOUNTER 2018-08-21 10:20 | Observation (INO) ==
[2018-08-21 10:37] VITALS: BMI 35.7
--- NOTE | 2018-08-21 10:55 | DR.CP ---
HPI Time Seen Time Seen by Provider: 08/21/18 10:47 PCP Primary Care Physician: EDDIE Complaint Chief Complaint Doctor Comments: Patient presented with complaint of chest type bubbles this AM 0430 vs pressure associated with dyspnea and nausea. He admits to a cardiac catherization in [place] 7-8 years ago. He has been followed by Dr. Mendez and cardiac w/u negative to include a stress test.. Chief Complaint:: SHORTNESS OF BREATH AND CHEST PRESSURE THAT WOKE HIM AT 4AM. DESCRIBED LIKE A BUBBLE IN HIS CHEST AND LIKE CHEST SKIPS A BEAT. Self Treatment fo Chief Complaint: TOOK AM MEDS Source History Provided: Patient Mode of Arrival Mode of Arrival: Ambulatory Timing Onset of Chief Complaint: 08/21/18 Location Chest Pain Radiation Location: None Associated Signs and Symptoms Associated Signs and Symptoms: Shortness of Breath and Nausea/Vomiting PMH PMH Past Medical History: Yes Past Medical History: Arthritis, Diabetes and Hypertension Past Medical History Comment: GASTROPHERESIS, Past Surgical History: Yes Surgical History: Cholecystectomy Family History History of Family Medical Conditions: Yes Family Medical History: Coronary Artery Disease and Hypertension Social History Does patient currently use any type of tobacco product: No Have you used tobacco products in the last 12 months: No Alcohol Use: None Do you use any recreational Drugs:: No Lives With: Alone and Family Lives Where: Home infectious screening In the last 2 months have you had wt loss of >10#?: NO Have you had fever, night sweats or hemotysis?: No Have you traveled outside the country in the last 6 months?: No Isolation: Standard ROS Review of Systems Constitutional: No Symptoms Reported Eyes: No Symptoms Reported ENTM: No Symptoms Reported Respiratoy: No Symptoms Reported Cardiovascular: No Symptoms Reported Gastrointestinal/Abdominal: No Symptoms Reported Genitourinary: No Symptoms Reported Musculoskeletal: See HPI Integumentary: No Symptoms Reported Hematologic/Lymphatic: No Symptoms Reported Endocrine: No Symptoms Reported Psychiatric: No Symptoms Reported All Other Systems: Reviewed and Negative PE Vitals Vitals: Temperature 97.1 F Pulse Rate [Left Brachial] 60 Pulse Rate 66 Respiratory Rate 18 Blood Pressure [Right Arm] 137/74 Blood Pressure 131/75 O2 Sat by Pulse Oximetry 97 General Limitations: No Limitations General Appearance: Alert Head Head Exam: Normal Inspection, Atraumatic and Normocephalic Eyes Eye exam: Normal Appearance, PERRL and EOMI ENT ENT Exam: Normal Exam, Normal Oropharynx and Normal External Ear Exam Chest Chest Inspection: Normal Inspection and Symmetric Chest Wall Rise Respiratory Respiratory Exam: Bilateral: Clear to Auscultation Cardiovascular Cardiovascular Exam: Regular Rate and Normal Rhythm Pulse: Normal Edema: Normal Abdominal Exam Abdominal Exam: Normal Inspection, Normal Bowel Sounds and Soft Back Back Exam: Normal Inspection Neurologic Neurological Exam: Alert, Oriented X3 and CN II-XII Intact Psychiatric Psychiatric Exam: Normal Affect and Normal Mood Skin Skin Exam: Warm, Dry, Intact and Normal Color COURSE Consultation Consultation Comments: Dr. Mendez agreed to admit for chest pain protocol ROR Labs Reviewed Laboratory Results Reviewed?: Yes Result Diagrams: 08/21/18 10:53 08/21/18 10:53 Laboratory: WBC 8.3 X10^3/uL (3.6-10.0) 08/21/18 10:53 RBC 3.92 X10^6/uL (4.7-6.0) L 08/21/18 10:53 Hgb 12.3 g/dL (13.5-18.0) L 08/21/18 10:53 Hct 35.9 % (42.0-54.0) L 08/21/18 10:53 MCV 91.6 fL (80.0-100.0) 08/21/18 10:53 MCH 31.5 pg (27.0-34.0) 08/21/18 10:53 MCHC 34.3 g/dL (33.0-35.0) 08/21/18 10:53 RDW 13.1 % (11.6-16.5) 08/21/18 10:53 Plt Count 235 X10^3/uL (150.0-450.0) 08/21/18 10:53 MPV 8.1 fL (7.4-11.0) 08/21/18 10:53 Neut % (Auto) 64.2 % (42.0-75.0) 08/21/18 10:53 Lymph % (Auto) 23.5 % (21.0-51.0) 08/21/18 10:53 [place] % (Auto) 9.8 % (0.0-13.0) 08/21/18 10:53 Eos % (Auto) 1.6 % (0.9-2.9) 08/21/18 10:53 Baso % (Auto) 0.9 % (0.2-1.0) 08/21/18 10:53 Neut # (Auto) 5.3 x10^3/uL (2.2-4.8) H 08/21/18 10:53 Lymph # (Auto) 2.0 X10^3/uL (1.3-2.9) 08/21/18 10:53 [place] # (Auto) 0.8 x10^3/uL (0.3-0.8) 08/21/18 10:53 Eos # (Auto) 0.1 x10^3/uL (0.0-0.2) 08/21/18 10:53 Baso # (Auto) 0.1 X10^3/uL (0.0-0.1) 08/21/18 10:53 Absolute Nucleated RBC 0.0 /100WBC 08/21/18 10:53 INR Target Range - 08/21/18 10:53 INR 0.92 (0.8-1.3) 08/21/18 10:53 D-Dimer 129 ng/mL (0-400) 08/21/18 10:53 Sodium 137 mmol/L (136-145) 08/21/18 10:53 Corrected Sodium 143 mmol/L (136-145) 08/21/18 10:53 Potassium 4.8 mmol/L (3.5-5.1) 08/21/18 10:53 Chloride 104 mmol/L (98-107) 08/21/18 10:53 Carbon Dioxide 26.6 mmol/L (21-32) 08/21/18 10:53 BUN 33 mg/dL (7-18) H 08/21/18 10:53 Creatinine 1.25 mg/dL (0.70-1.30) 08/21/18 10:53 Est GFR (MDRD) Af Amer > 60 (>60) 08/21/18 10:53 Est GFR (MDRD) Non-Af > 60 (>60) 08/21/18 10:53 Glucose 333 mg/dL (65-99) H 08/21/18 10:53 Calcium 8.8 mg/dL (8.5-10.1) 08/21/18 10:53 Corrected Calcium TNP 08/21/18 10:53 Magnesium 2.1 mg/dL (1.7-2.9) 08/21/18 10:53 Total Bilirubin 0.20 mg/dL (0.2-1.0) 08/21/18 10:53 AST 10 Units/L (15-37) L 08/21/18 10:53 ALT 27 Units/L (12-78) 08/21/18 10:53 Alkaline Phosphatase 83 Units/L (46-116) 08/21/18 10:53 Creatine Kinase 54 Units/L (39-308) 08/21/18 10:53 CK-MB (CK-2) < 1.0 ng/mL (0-4.0) 08/21/18 10:53 CK/CKMB % Calc 1.9 % (<4) 08/21/18 10:53 Troponin I < 0.02 ng/mL (0-1.5) 08/21/18 10:53 Total Protein 6.6 g/dL (6.4-8.2) 08/21/18 10:53 Albumin 3.4 g/dL (3.4-5.0) 08/21/18 10:53 Globulin 3.2 g/dL (2.5-4.5) 08/21/18 10:53 Albumin/Globulin Ratio 1.1 Ratio (1.1-2.1) 08/21/18 10:53 Diagnosis Discharge Problem: Chest pain ADDITIONAL NOTES Additional Notes Additional Notes: Patient admitted for chest pain workup
[2018-08-21 11:13] LABS: BASOPHILS # (AUTO) 0.1 X10^3/uL (0.0-0.1); BASOPHILS % (AUTO) 0.9 % (0.2-1.0); EOSINOPHILS # (AUTO) 0.1 x10^3/uL (0.0-0.2); EOSINOPHILS % (AUTO) 1.6 % (0.9-2.9); HEMATOCRIT 35.9 % (42.0-54.0); HEMOGLOBIN 12.3 g/dL (13.5-18.0); LYMPHOCYTES % (AUTO) 23.5 % (21.0-51.0); MEAN CORPUSCULAR HEMOGLOBIN 31.5 pg (27.0-34.0); MEAN CORPUSCULAR HGB CONC 34.3 g/dL (33.0-35.0); MEAN CORPUSCULAR VOLUME 91.6 fL (80.0-100.0); MEAN PLATELET VOLUME 8.1 fL (7.4-11.0); MONOCYTES # (AUTO) 0.8 x10^3/uL (0.3-0.8); MONOCYTES % (AUTO) 9.8 % (0.0-13.0); NEUTROPHILS # (AUTO) 5.3 x10^3/uL (2.2-4.8); NEUTROPHILS % (AUTO) 64.2 % (42.0-75.0); PLATELET COUNT 235 X10^3/uL (150.0-450.0); RED BLOOD COUNT 3.92 X10^6/uL (4.7-6.0); RED CELL DISTRIBUTION WIDTH 13.1 % (11.6-16.5); WHITE BLOOD COUNT 8.3 X10^3/uL (3.6-10.0)
[2018-08-21 11:44] LABS: BLOOD UREA NITROGEN 33 mg/dL (7-18); CALCIUM 8.8 mg/dL (8.5-10.1); CARBON DIOXIDE 26.6 mmol/L (21-32); CHLORIDE 104 mmol/L (98-107); COR NA(FOR HYPERGLY) 143 mmol/L (136-145); CREATININE 1.25 mg/dL (0.70-1.30); SODIUM 137 mmol/L (136-145); TROPONIN I < 0.02 ng/mL (0-1.5); eGFR NON BLACK RACES > 60 (>60)
--- NOTE | 2018-08-21 11:59 | RAD ---
Exam: Portable chest History: 58-year-old male with chest pain and shortness of breath. Comparison: None Findings: Mild cardiomegaly is seen. No significant vascular congestion however. Lungs are clear with no infiltrate or significant effusion on either side. Bony thorax is unremarkable. Impression: No acute cardiopulmonary abnormality is seen on this exam Reported By:
[2018-08-21 12:06] LABS: ALANINE AMINOTRANSFERASE 27 Units/L (12-78); ALBUMIN 3.4 g/dL (3.4-5.0); ALKALINE PHOSPHATASE 83 Units/L (46-116); ASPARTATE AMINO TRANSFERASE 10 Units/L (15-37); CKMB % 1.9 % (<4); CREATINE KINASE 54 Units/L (39-308); CREATINE KINASE MB < 1.0 ng/mL (0-4.0); MAGNESIUM 2.1 mg/dL (1.7-2.9); TOTAL PROTEIN 6.6 g/dL (6.4-8.2)
[2018-08-21] MEDS ORDERED: NORCO 5/325 MG TAB PO PRN (14:35)
[2018-08-21] MEDS ORDERED: MORPHINE SULFATE INJ 2 MG INJ IVP PRN (14:35)
[2018-08-21] MEDS ORDERED: TYLENOL 325 MG TAB PO PRN (14:35)
[2018-08-21] MEDS: HumuLIN R SUBCUT PRN ×2 (16:17→22:00)
[2018-08-21] MEDS: PATIENT'S HOME MEDICATION PO SCH ×3 (16:18→22:00)
[2018-08-21] MEDS: REGLAN TAB 10 MG PO SCH ×2 (16:18→21:27)
[2018-08-21 17:37] LABS: CKMB % 2.4 % (<4); CREATINE KINASE 42 Units/L (39-308); CREATINE KINASE MB < 1.0 ng/mL (0-4.0); TROPONIN I < 0.02 ng/mL (0-1.5)
[2018-08-21] MEDS ORDERED: SNACK - Diabetic Appropriate PO SCH (20:00)
[2018-08-21] MEDS ORDERED: ZANAFLEX PO SCH (21:00)
[2018-08-21] MEDS ORDERED: TOUJEO SOLOSTAR PEN SC SCH (21:00)
[2018-08-21] MEDS: COZAAR PO SCH (21:26)
[2018-08-21] MEDS: PROTONIX TAB 40 MG PO SCH (21:27)
[2018-08-21 23:31] LABS: CKMB % 2.7 % (<4); CREATINE KINASE 37 Units/L (39-308); CREATINE KINASE MB < 1.0 ng/mL (0-4.0); TROPONIN I < 0.02 ng/mL (0-1.5)
[2018-08-22 05:11] LABS: BASOPHILS # (AUTO) 0.1 X10^3/uL (0.0-0.1); BASOPHILS % (AUTO) 0.9 % (0.2-1.0); EOSINOPHILS # (AUTO) 0.2 x10^3/uL (0.0-0.2); EOSINOPHILS % (AUTO) 2.9 % (0.9-2.9); HEMATOCRIT 34.9 % (42.0-54.0); LYMPHOCYTES % (AUTO) 37.3 % (21.0-51.0); MEAN CORPUSCULAR HEMOGLOBIN 31.9 pg (27.0-34.0); MEAN CORPUSCULAR HGB CONC 34.5 g/dL (33.0-35.0); MEAN CORPUSCULAR VOLUME 92.5 fL (80.0-100.0); MONOCYTES # (AUTO) 0.9 x10^3/uL (0.3-0.8); MONOCYTES % (AUTO) 11.1 % (0.0-13.0); NEUTROPHILS # (AUTO) 3.8 x10^3/uL (2.2-4.8); NEUTROPHILS % (AUTO) 47.8 % (42.0-75.0); PLATELET COUNT 205 X10^3/uL (150.0-450.0); RED BLOOD COUNT 3.78 X10^6/uL (4.7-6.0)
[2018-08-22 05:37] LABS: ALANINE AMINOTRANSFERASE 26 Units/L (12-78); ALBUMIN 3.1 g/dL (3.4-5.0); ALKALINE PHOSPHATASE 74 Units/L (46-116); ASPARTATE AMINO TRANSFERASE 12 Units/L (15-37); BLOOD UREA NITROGEN 26 mg/dL (7-18); CALCIUM 8.5 mg/dL (8.5-10.1); CARBON DIOXIDE 26.3 mmol/L (21-32); CHLORIDE 105 mmol/L (98-107); CHOL/HDL RATIO 3.7 (0.0-5.0); CHOLESTEROL 161 mg/dL (0-200); COR CA(FOR HYPOALB) 9.2 mg/dL (8.5-10.1); COR NA(FOR HYPERGLY) 141 mmol/L (136-145); HDL CHOLESTEROL 43 mg/dL (40-60); SODIUM 140 mmol/L (136-145); TOTAL PROTEIN 5.9 g/dL (6.4-8.2); TRIGLYCERIDES 153 mg/dL (0-150); eGFR NON BLACK RACES > 60 (>60)
[2018-08-22] MEDS: PATIENT'S HOME MEDICATION PO SCH ×2 (06:00→11:03)
[2018-08-22] MEDS: REGLAN TAB 10 MG PO SCH ×2 (06:22→11:03)
[2018-08-22] MEDS ORDERED: MILK OF MAGNESIA PO PRN (07:14)
--- NOTE | 2018-08-22 07:25 | RAD ---
HISTORY: Chest pain Study: Chest AP portable Comparison: 08/21/2018 Findings: The heart is within normal limits in size. The aminah are normal. The lung rivera are clear. No pleural effusions are identified. The bony thorax is unremarkable. IMPRESSION: No significant abnormality identified Reported By:
[2018-08-22] MEDS: COZAAR PO SCH (08:03)
[2018-08-22] MEDS: PROTONIX TAB 40 MG PO SCH (08:03)
[2018-08-22 08:47] VITALS: BP 152/80
[2018-08-22] MEDS ORDERED: ASPIRIN 81 MG CHEWTAB PO SCH (09:00)
[2018-08-22] MEDS ORDERED: PATIENT'S HOME MEDICATION PO SCH (09:00)
[2018-08-22] MEDS ORDERED: PROCARDIA XL PO SCH (09:00)
[2018-08-22] MEDS: HumuLIN R SUBCUT PRN (11:13)
--- NOTE | 2018-08-31 10:36 | DR.CARTERS ---
Short Stay Summary - Admission Date Date of Admission: 08/21/18 - Discharge Date Discharge Date: 08/22/18 - Admission Diagnoses (1) Chest pain Status: Acute - Hospital Course Hospital Course: IS A 58 YEAR OLD PATIENT OF OURS WHO PRESENTED TO THE ER WITH COMPLAINTS OF SHORTNESS OF BREATH AND CHEST PAIN. HE REPORTED PAIN WAKING HIM UP FROM HIS SLEEP AROUND 4AM. HE DESCRIBED PAIN BUBBLES OR PRESSURE IN HIS CHEST. HE ALSO REPORTED NAUSEA. HE HAS HAD A NEGATIVE CARDIAC WORK-UP IN THE OFFICE ABOUT A YEAR AGO. ON ARRIVAL, VITALS WERE 97.0-66-16-97%-131/75. LABS WERE OBTAINED. ABNORMAL LAB VALUES INCLUDE THE FOLLOWING: RBC 3.92, HGB 12.3, HCT 35.9, BUN 33, GLUCOSE 333, AST 10. CARDIAC ENZYMES WITHIN NORMAL LIMITS. EKG REVEALED: SINUS RHYTHM WITH HR 64. A CHEST XRAY WAS OBTAINED AND REVEALED: NO ACUTE CARDIOPULMONARY ABNORMALITY SEEN. HE WAS ADMITTED FOR FURTHER EVALUATION AND TREATMENT OF CHEST PAIN RULE OUT ACUTE OH. WE PLANNED TO OBTAIN SERIAL CARDIAC ENZYMES AND EKGS AND CONTINUE TO MONITOR. ON THE MORNING FOLLOWING ADMISSION, PATIENT DENIES CHEST PAIN OR SHORTNESS OF BREATH. HE DOES REPORT FEELING ANXIOUS. ON EXAMINATION, HEART IS REGULAR IN RATE AND RHYTHM. BILATERAL LUNGS ARE CLEAR TO AUSCULTATION. ABDOMEN IS ROUND, SOFT, AND NON-TENDER WITH NORMAL BOWEL SOUNDS NOTED IN ALL QUADRANTS. HIS VITLAS THIS MORNING ARE 98.0-60-18-99%-152/80. LABS WERE OBTAINED. ABNORMAL LAB VALUES INCLUDE THE FOLLOWING: RBC 3.78, HGB 12.0, HCT 34.9, BUN 26, GLUCOSE 136, AST 12, TOTAL PROTEIN 5.9, ALBUMIN 3.1, TRIGLYCERIDES 153. CARDIAC ENZYMES WNL. NO CHANGES NOTED TO EKGS. WE PLANNED FOR DISCHARGE. INSTRUCTIONS FOR MEDICATIONS AND FOLLOW-UP WERE DISCUSSED WITH PATIENT AND FAMILY. THEY VERBALIZED UNDERSTANDING. HE WAS DISCHARGED HOME ON XANAX 0.25MG PO BID, ECOTRIN 325MG PO DAILY, LEXAPRO 5MG PO DAILY, AND ROSUVASTATIN 5MG PO DAILY. WE WILL SET HIM UP FOR FURTHER CARDIAC WORK-UP IN THE OFFICE. PATIENT DISCHARGED HOME WITH FAMILY IN STABLE CONDITION. - Discharge Medications Discharge Medications: Home Medication List Mireya Mulligan U-300 Insulin 33 units SUBCUT HS 08/21/18 [History] azithromycin 250 mg PO TID 08/21/18 [History] buprenorphine HCl 0.5 tab SUBLINGUAL QID 08/21/18 [History] losartan 50 mg PO BID 08/21/18 [History] metoclopramide HCl [Reglan] 10 mg PO QID 08/21/18 [History] nifedipine [Procardia XL] 30 mg PO DAILY 08/21/18 [History] pantoprazole [Protonix] 40 mg PO BID 08/21/18 [History] propranolol 60 mg PO DAILY 08/21/18 [History] tizanidine 4 mg PO HS 08/21/18 [History] alprazolam [Xanax] 0.25 mg PO BID PRN #60 tab 08/22/18 [Rx] aspirin [Ecotrin] 325 mg PO QDAY #90 tab 08/22/18 [Rx] escitalopram oxalate [Lexapro] 5 mg PO QDAY #30 tab 08/22/18 [Rx] rosuvastatin 5 mg PO QDAY #30 tab 08/22/18 [Rx] Prescriptions: alprazolam [Xanax] Maynor Mendez aspirin [Ecotrin] Maynor Mendez escitalopram oxalate [Lexapro] Maynor Mendez rosuvastatin Maynor Mendez - Discharge Plan Disposition: 01 HOME, SELF-CARE Condition: Stable Prescriptions: alprazolam [Xanax] 0.25 mg PO BID PRN #60 tab PRN Reason: aspirin [Ecotrin] 325 mg PO QDAY #90 tab escitalopram oxalate [Lexapro] 5 mg PO QDAY #30 tab rosuvastatin 5 mg PO QDAY #30 tab - Follow up/Referrals Follow up/Referrals: Maynor Mendez [Primary Care Provider] - 08/29/18 2:00 pm - Instructions Instructions: Nonspecific Chest Pain, [id number], Aspirin and Your Heart, Type 2 Diabetes Mellitus, Self Care, Adult, [id number], Hypertension, [id number], Managing Your Hypertension Additional Instructions: DIET TOLERATED. ACTIVITY TOLERATED. Forms: Excuse From Work, Patient Portal
== END 2018-08-22 12:00 | disposition home or self-care (01) ==
LOC: ER 10:20 → MED/SURG 10:20
PROVIDERS: ADMIT Internal Medicine; ATTEND Internal Medicine
DX: R11.2 Nausea with vomiting, unspecified; Z79.899 Other long term (current) drug therapy; R06.02 Shortness of breath; E11.65 Type 2 diabetes mellitus with hyperglycemia; I10 Essential (primary) hypertension; Z79.01 Long term (current) use of anticoagulants; R07.89 Other chest pain
CPT/HCPCS: 36415; 71010; 71045; 80053; 80061; 82550; 82553; 83735; 84484; 85025; 85378; 85610; 93005; 94760; 96365; 96372; 99284; A4222; G0378; J1815; J3490

== ENCOUNTER 2022-11-11 11:59 | Observation (INO) ==
[2022-11-11] MEDS ORDERED: ZOFRAN INJ 4 MG VIAL IVP PRN (12:03)
[2022-11-11] MEDS ORDERED: PHENERGAN INJ 25 MG IM PRN (12:04)
[2022-11-11] MEDS ORDERED: NS 1,000 ML IV 1,000 ML IV ONE (12:05)
[2022-11-11 13:19] VITALS: BMI 26.0
[2022-11-11 15:48] LABS: BASOPHILS # (AUTO) 0.1 X10^3/uL (0.0-0.1); BASOPHILS % (AUTO) 1.1 % (0.2-1.0); EOSINOPHILS # (AUTO) 0.1 x10^3/uL (0.0-0.2); EOSINOPHILS % (AUTO) 1.2 % (0.9-2.9); HEMATOCRIT 33.4 % (42.0-54.0); HEMOGLOBIN 11.9 g/dL (13.5-18.0); LYMPHOCYTES # (AUTO) 1.4 X10^3/uL (1.3-2.9); LYMPHOCYTES % (AUTO) 20.4 % (21.0-51.0); MEAN CORPUSCULAR HEMOGLOBIN 31.3 pg (27.0-34.0); MEAN CORPUSCULAR HGB CONC 35.6 g/dL (33.0-35.0); MEAN CORPUSCULAR VOLUME 88.1 fL (80.0-100.0); MEAN PLATELET VOLUME 7.6 fL (7.4-11.0); MONOCYTES # (AUTO) 0.8 x10^3/uL (0.3-0.8); MONOCYTES % (AUTO) 12.5 % (0.0-13.0); NEUTROPHILS # (AUTO) 4.4 x10^3/uL (2.2-4.8); NEUTROPHILS % (AUTO) 64.8 % (42.0-75.0); PLATELET COUNT 192 X10^3/uL (150.0-450.0); RED BLOOD COUNT 3.79 X10^6/uL (4.7-6.0); RED CELL DISTRIBUTION WIDTH 13.3 % (11.6-16.5); WHITE BLOOD COUNT 6.7 X10^3/uL (3.6-10.0)
[2022-11-11 16:00] LABS: ALANINE AMINOTRANSFERASE 23 Units/L (12-78); ALBUMIN 3.5 g/dL (3.4-5.0); ALKALINE PHOSPHATASE 76 Units/L (46-116); ASPARTATE AMINO TRANSFERASE 20 Units/L (15-37); BLOOD UREA NITROGEN 51 mg/dL (7-18); CALCIUM 8.5 mg/dL (8.5-10.1); CARBON DIOXIDE 31.5 mmol/L (21-32); CHLORIDE 100 mmol/L (98-107); COR NA(FOR HYPERGLY) 140 mmol/L (136-145); CREATINE KINASE 167 Units/L (39-308); CREATININE 2.19 mg/dL (0.70-1.30); GLUCOSE 145 mg/dL (65-99); POTASSIUM 3.3 mmol/L (3.5-5.1); SODIUM 139 mmol/L (136-145); TOTAL PROTEIN 6.6 g/dL (6.4-8.2); eGFR NON BLACK RACES 33 (>60)
[2022-11-11] MEDS ORDERED: NS 1,000 ML IV 1,000 ML ONE (16:15)
[2022-11-11 17:07] LABS: BILIRUBIN,URINE NEGATIVE (NEGATIVE); BLOOD/HEMOGLOBIN,URINE 2+ (NEGATIVE); GLUCOSE, URINE 2+ (NEGATIVE); KETONES,URINE 1+ (NEGATIVE); LEUKOCYTE ESTERASE ,URINE NEGATIVE (NEGATIVE); NITRITES,URINE NEGATIVE (NEGATIVE); PH,URINE 6.5 (5.0 - 8.0); PROTEIN,URINE 2+ (NEGATIVE); UROBILINOGEN,URINE NORMAL (NORMAL)
[2022-11-11 17:20] LABS: APPEARANCE,URINE CLEAR (CLEAR); COLOR,URINE STRAW (YELLOW)
[2022-11-11 17:26] LABS: BACTERIA,URINE NEGATIVE /HPF (NEGATIVE); RBC,URINE NONE SEEN /HPF (0-3); SQUAMOUS EPITHELIAL CELL,UR NEGATIVE /HPF (NEGATIVE)
[2022-11-11] MEDS ORDERED: PHARMACY CONSULT - POTASSIUM & MAGNESIUM XX SCH (18:00)
[2022-11-11] MEDS: K-RIDER 10 MEQ/NS 100 ML 10 MEQ/100 ML BAG IV SCH ×2 (18:12→21:13)
[2022-11-11] MEDS ORDERED: NovoLIN R (or HumuLIN R) SUBCUT PRN (19:03)
[2022-11-11] MEDS: SNACK - Diabetic Appropriate PO SCH (20:15)
--- NOTE | 2022-11-11 22:45 | RAD ---
HISTORYSOBSTUDYCHEST, 1 VIEWCOMPARISONNone.TECHNIQUEA single frontal view of the chest was obtained.FINDINGSThere is a right MediPort catheter in situ. The heart is normal in size. There is no focal infiltrate. There is no effusion. There is no pneumothorax. The osseous structures are intact.IMPRESSIONNo focal infiltrate or effusion.Right MediPort catheter in situ.Electronically signed by: Bella Benavidez (Nov 11, 2022 22:44:57)
[2022-11-11] MEDS: MORPHINE SULFATE INJ 2 MG INJ IVP PRN (23:07)
[2022-11-12] MEDS ORDERED: NORCO 5/325 MG TAB PO PRN (03:44)
[2022-11-12 05:45] LABS: BASOPHILS # (AUTO) 0.1 X10^3/uL (0.0-0.1); BASOPHILS % (AUTO) 0.9 % (0.2-1.0); EOSINOPHILS # (AUTO) 0.1 x10^3/uL (0.0-0.2); EOSINOPHILS % (AUTO) 1.6 % (0.9-2.9); HEMATOCRIT 36.3 % (42.0-54.0); HEMOGLOBIN 12.9 g/dL (13.5-18.0); LYMPHOCYTES # (AUTO) 2.2 X10^3/uL (1.3-2.9); LYMPHOCYTES % (AUTO) 26.7 % (21.0-51.0); MEAN CORPUSCULAR HEMOGLOBIN 31.5 pg (27.0-34.0); MEAN CORPUSCULAR HGB CONC 35.6 g/dL (33.0-35.0); MEAN CORPUSCULAR VOLUME 88.6 fL (80.0-100.0); MEAN PLATELET VOLUME 8.3 fL (7.4-11.0); MONOCYTES # (AUTO) 0.9 x10^3/uL (0.3-0.8); MONOCYTES % (AUTO) 11.2 % (0.0-13.0); NEUTROPHILS # (AUTO) 4.9 x10^3/uL (2.2-4.8); NEUTROPHILS % (AUTO) 59.6 % (42.0-75.0); PLATELET COUNT 199 X10^3/uL (150.0-450.0); RED BLOOD COUNT 4.09 X10^6/uL (4.7-6.0); WHITE BLOOD COUNT 8.3 X10^3/uL (3.6-10.0)
[2022-11-12 06:05] LABS: ALANINE AMINOTRANSFERASE 23 Units/L (12-78); ALBUMIN 3.8 g/dL (3.4-5.0); ALKALINE PHOSPHATASE 81 Units/L (46-116); AMYLASE 14 Units/L (25-115); ASPARTATE AMINO TRANSFERASE 23 Units/L (15-37); BLOOD UREA NITROGEN 42 mg/dL (7-18); CARBON DIOXIDE 28.5 mmol/L (21-32); CHLORIDE 100 mmol/L (98-107); COR NA(FOR HYPERGLY) 140 mmol/L (136-145); CREATININE 1.82 mg/dL (0.70-1.30); GLUCOSE 142 mg/dL (65-99); LIPASE 51 Units/L (73-393); MAGNESIUM 2.2 mg/dL (2.0-2.9); POTASSIUM 3.5 mmol/L (3.5-5.1); SODIUM 139 mmol/L (136-145); eGFR NON BLACK RACES 40 (>60)
[2022-11-12] MEDS ORDERED: PHARMACY CONSULT - POTASSIUM & MAGNESIUM XX SCH (07:00)
[2022-11-12] MEDS ORDERED: PATIENT'S HOME MEDICATION (Buprenorphine Hcl 8 mg tablet, sublingual) SL PRN (08:40)
[2022-11-12] MEDS ORDERED: XANAX PO PRN (08:40)
[2022-11-12] MEDS ORDERED: K-DUR TAB 20 MEQ PO SCH (09:00)
[2022-11-12] MEDS: PROTONIX INJ 40 MG VIAL IVP SCH ×2 (09:14→20:56)
[2022-11-12] MEDS: PEPCID 20 MG VIAL 20 MG in NS 50 ML IV 50 ML IV SCH (09:14)
[2022-11-12] MEDS: CRESTOR TAB 10 MG PO SCH (09:15)
--- NOTE | 2022-11-12 09:15 | DR.H&P ---
H&P - History & Physical for Day of: H&P Date: 11/11/22 - Chief Complaint Chief Complaint: NAUSEA, VOMITING, WEAKNESS, LOWER EXTREMITY SWELLING - History of Present Illness History of Present Illness: IS A 62 YEAR OLD PATIENT OF OUR. HE PRESENTED TO THE OFFICE ON 11/11/22 WITH COMPLAINTS OF NAUSEA AND VOMITING FOR 10 DAYS PRIOR TO ARRIVAL. HE REPORTS THAT HE HAS NOW HAD DECREASED URINARY OUTPUT AND GENERALIZED WEAKNESS. HE REPORTS TAKING ZOFRAN AT HOME WITHOUT IMPROVEMENT IN SYMPTOMS. ADDITIONALLY, HE COMPLAINS OF LOWER EXTREMITY SWELLING. HIS PMH INCLUDES: RENAL CELL CARCINOMA OF THROAT (RECEIVED CHEMO), CAD, SEIZURES, HTN, HYPERLIPIDEMIA, BLOOD CLOTS IN BASE OF BILATERAL RETINAS, SLEEP APNEA, GERD, HIATAL HERNIA, DYSPHAGIA, DM II, ANXIETY, DEPRESSION, CHOLECYSTECTOMY, PEG TUBE, PORT A CATH. DECISION WAS MADE TO ADMIT PATIENT TO THE HOSPITAL OBSERVATION STATUS FOR FURTHER EVALUATION AND TREATMENT OF DEHYDRATION, INTRACTABLE NAUSEA AND VOMTING, DM II, GASTROPARESIS, HTN, CAD. ON ARRIVAL TO THE HOSPITAL, HIS VITALS WERE 98.1-86-20-98%-159/109. LABS WERE OBTAINED. WBC 6.7, RBC 3.79, HGB 11.9, HCT 33.4, PLT COUNT 192, SODIUM 139, POTASSIUM 3.3, CHLORIDE 100, BUN 51, CREATININE 2.19, GLUCOSE 145, CALCIUM 8.5, AST 20, ALT 23, ALK PHOS 76, CREATINE KINASE 167, TOTAL PROTEIN 6.6, ALBUMIN 3.5. URINALYSIS WAS OBTAINED AND WAS UNREMARKABLE, HOWEVER, A URINE CULTURE WAS SET UP. A CHEST XRAY WAS OBTAINED AND WAS NEGATIVE FOR ACUTE ABNORMALITY. HE WAS GIVEN A NORMAL SALINE BOLUS. HE WAS THEN STARTED ON NORMAL SALINE AT 75 ML/HR, PEPCID 20MG IV DAILY, PROTONIX 40MG IV BID, ZOFRAN 4MG IV Q6H PRN, PHENERGAN 25MG IM Q6H, MORPHINE SULFATE 2MG IV Q4H PRN, AND HIS HOME MEDS WERE RESUMED. HOME MEDS INCLUDE: XANAX, CELEBREX, NORCO, SYNTHROID, INDERAL, CRESTOR, ZANAFLEX, AND EFFEXOR. WE WILL OBTAIN A KUB AND LOWER EXTREMITY VENOUS DOPPLERS TO RULE OUT DVT. OTHERWISE, WE WILL FOLLOW- UP WITH AM LABS AND CONTINUE TO MONITOR. TIME SPENT ON CLINICAL ASSESSMENT, REVIEWING LABS AND IMAGING, DECISION MAKING, AND DOCUMENTATION GREATER THAN 75 MINUTES. - Past Medical History Past Medical History: Diabetes, Hypothyroidism, Arthritis - Past Surgical History Surgical History: Cholecystectomy - Family History Family Medical History: Diabetes Mellitus - Social History Alcohol Use: None Drug Use: Prescription Drugs, Marijuana - Review of Systems Constitutional: Weakness Eyes: No Symptoms Reported ENT: No Symptoms Reported Respiratory: No Symptoms Reported Cardiovascular: No Symptoms Reported Gastrointestinal: Nausea, Vomiting, Diarrhea. denies: Constipation, Melena, Hematochezia Genitourinary: No Symptoms Reported Musculoskeletal: No Symptoms Reported Skin: No Symptoms Reported Neurological: Weakness - Physical Exam Vital Signs: Vital Signs Temperature 98.4 F Pulse Rate [Left] 79 Respiratory Rate 18 Respiratory Rate 20 Respiratory Rate 18 Blood Pressure [Right Arm] 158/83 O2 Sat by Pulse Oximetry 99 Oriented: Normal Eyes: Normal Ear: Normal Nose: Normal Throat: Normal Respiratory: Diminished Throughout Cardiovascular: Normal : Normal Auscultation: Bowel Sounds: Decreased Palpation: Normal Tenderness: Normal Skin: Decreased [place] Musculoskeletal: Normal Psychiatric: Normal Mood Description: Calm Affect: Normal Speech Pattern: Clear - Assessment/Plan (1) Dehydration Status: Acute Plan: NORMAL SALINE AT 75 ML/HR, PEPCID 20MG IV DAILY, PROTONIX 40MG IV BID, ZOFRAN 4MG IV Q6H PRN, PHENERGAN 25MG IM Q6H, MORPHINE SULFATE 2MG IV Q4H PRN, AND HIS HOME MEDS WERE RESUMED. HOME MEDS INCLUDE: XANAX, CELEBREX, NORCO, SYNTHROID, INDERAL, CRESTOR, ZANAFLEX, AND EFFEXOR. (2) Nausea & vomiting Qualifiers: Vomiting type: unspecified Qualified Code(s): R11.2 - Nausea with vomiting, unspecified Status: Acute (3) Lower extremity edema Status: Acute (4) DM (diabetes mellitus) Qualifiers: Diabetes mellitus type: type 2 Diabetes mellitus fpc insulin use: with termite inspector use Diabetes mellitus complication status: with hyperglycemia Qualified Code(s): E11.65 - Type 2 diabetes mellitus with hyperglycemia; Z79.4 - snf (current) use of insulin Status: Chronic (5) Diabetic gastroparesis Status: Chronic (6) CAD (coronary artery disease) Qualifiers: Coronary Disease-Associated Artery/Lesion type: [place] artery [place] vs. transplanted heart: [place] heart Associated angina: unspecified whether angina present Qualified Code(s): I25.10 - Atherosclerotic heart disease of [place] coronary artery without angina pectoris Status: Chronic (7) Hypertension Qualifiers: Hypertension type: primary hypertension Qualified Code(s): I10 - Essential (primary) hypertension Status: Chronic - Allergies Allergies/Adverse Reactions: Allergies Allergy/AdvReac Type Severity Reaction Status Date / Time No Known Drug Allergies Allergy Unknown Verified 11/11/22 12:46 - Medications Home Medications: Home Medications Medication Instructions Recorded Confirmed alprazolam 1 mg tablet 1 tab PO BID PRN 11/11/22 11/11/22 buprenorphine HCl 8 mg sublingual 2 tab sublingual QDAY PRN 11/11/22 11/11/22 tablet celecoxib 100 mg capsule 1 cap PO BID 11/11/22 11/11/22 dextroamphetamine-amphetamine 20 1 tab PO BID 11/11/22 11/11/22 mg tablet levothyroxine 125 mcg tablet 1 tab PO QDAY 11/11/22 11/11/22 pantoprazole 40 mg tablet,delayed 1 tab PO BID 11/11/22 11/11/22 release propranolol 10 mg tablet 0.5 tab PO BID 11/11/22 11/11/22 rosuvastatin 5 mg tablet 1 tab PO QDAY 11/11/22 11/11/22 tamsulosin 0.4 mg capsule 2 cap PO QDAY 11/11/22 11/11/22 tizanidine 4 mg tablet 1 tab PO QPM 11/11/22 11/11/22 venlafaxine 150 mg 1 cap PO QDAY 11/11/22 11/11/22 capsule,extended release 24 hr venlafaxine 75 mg capsule,extended 1 cap PO QDAY 11/11/22 11/11/22 release 24 hr
[2022-11-12] MEDS: INDERAL TAB 10 MG PO SCH ×2 (09:17→20:54)
[2022-11-12] MEDS: CELEBREX PO SCH ×2 (09:17→20:54)
[2022-11-12] MEDS: SYNTHROID 125 mcg TAB PO SCH (09:18)
[2022-11-12] MEDS: EFFEXOR XR 75 MG CAP 24-HR PO SCH (09:18)
[2022-11-12] MEDS ORDERED: POTASSIUM CHLORIDE LIQ PO SCH (10:00)
[2022-11-12] MEDS: NS 1,000 ML IV 1,000 ML IV SCH (10:54)
[2022-11-12] MEDS: LOVENOX INJ 40 MG SYR SC SCH ×2 (11:03→11:15)
[2022-11-12] MEDS: MORPHINE SULFATE INJ 2 MG INJ IVP PRN ×3 (11:04→20:57)
[2022-11-12] MEDS ORDERED: PERCOCET TAB 5/325 MG PO PRN (13:45)
--- NOTE | 2022-11-12 13:52 | VAS ---
HISTORYDM, LEG PAINSTUDYLOWER EXT VENOUS, BILATERALCOMPARISONNoneTECHNIQUEMultiple hicks scale and color flow Doppler images of the deep venous system were obtained of the right and left lower extremity.FINDINGSThe deep venous system of the right and left lower extremities were evaluated from the level of the common femoral vein through the popliteal vein. Normal color flow and augmentation can be observed. In addition, normal compression is seen throughout the deep venous system.IMPRESSIONNegative for DVT.Electronically signed by: Gopal Alba (Nov 12, 2022 13:51:34)
[2022-11-12] MEDS ORDERED: PERCOCET TAB 5/325 MG ONE (14:02)
[2022-11-12] MEDS: NORCO 10/325 TAB PO PRN ×2 (14:04→22:28)
--- NOTE | 2022-11-12 19:21 | RAD ---
HISTORYN/VSTUDYKUBCOMPARISONNo ne.TECHNIQUEA supine view was acquired.FINDINGSThere is a gastrostomy tube overlying the midbody of the stomach. Mild gaseous distention of the distal 2/3 of the transverse colon is seen. Stool is noted throughout the rest of the colon. Is a nonobstructive, nonspecific bowel gas pattern. No pathologic calcifications are noted.The osseous structures are intact.IMPRESSIONNonobstructive, nonspecific bowel gas pattern.Gastrostomy tube balloon overlying the distal stomach.Electronically signed by: Bella Benavidez (Nov 12, 2022 19:20:05)
[2022-11-12] MEDS: SNACK - Diabetic Appropriate PO SCH (20:29)
[2022-11-12] MEDS ORDERED: ZANAFLEX PO SCH (21:00)
[2022-11-13 06:28] LABS: BASOPHILS # (AUTO) 0.1 X10^3/uL (0.0-0.1); BASOPHILS % (AUTO) 1.2 % (0.2-1.0); EOSINOPHILS # (AUTO) 0.2 x10^3/uL (0.0-0.2); EOSINOPHILS % (AUTO) 2.2 % (0.9-2.9); HEMATOCRIT 32.5 % (42.0-54.0); HEMOGLOBIN 11.6 g/dL (13.5-18.0); LYMPHOCYTES # (AUTO) 1.9 X10^3/uL (1.3-2.9); LYMPHOCYTES % (AUTO) 25.1 % (21.0-51.0); MEAN CORPUSCULAR HEMOGLOBIN 31.3 pg (27.0-34.0); MEAN CORPUSCULAR HGB CONC 35.5 g/dL (33.0-35.0); MEAN CORPUSCULAR VOLUME 88.1 fL (80.0-100.0); MEAN PLATELET VOLUME 7.9 fL (7.4-11.0); MONOCYTES # (AUTO) 0.8 x10^3/uL (0.3-0.8); MONOCYTES % (AUTO) 11.2 % (0.0-13.0); NEUTROPHILS # (AUTO) 4.5 x10^3/uL (2.2-4.8); NEUTROPHILS % (AUTO) 60.3 % (42.0-75.0); PLATELET COUNT 183 X10^3/uL (150.0-450.0); RED BLOOD COUNT 3.69 X10^6/uL (4.7-6.0); RED CELL DISTRIBUTION WIDTH 12.9 % (11.6-16.5); WHITE BLOOD COUNT 7.5 X10^3/uL (3.6-10.0)
[2022-11-13 06:34] LABS: ALANINE AMINOTRANSFERASE 19 Units/L (12-78); ALBUMIN 3.1 g/dL (3.4-5.0); ALKALINE PHOSPHATASE 68 Units/L (46-116); ASPARTATE AMINO TRANSFERASE 19 Units/L (15-37); BLOOD UREA NITROGEN 32 mg/dL (7-18); CALCIUM 8.2 mg/dL (8.5-10.1); CARBON DIOXIDE 31.2 mmol/L (21-32); CHLORIDE 102 mmol/L (98-107); COR CA(FOR HYPOALB) 8.9 mg/dL (8.5-10.1); COR NA(FOR HYPERGLY) 142 mmol/L (136-145); CREATININE 1.47 mg/dL (0.70-1.30); GLUCOSE 135 mg/dL (65-99); POTASSIUM 3.4 mmol/L (3.5-5.1); SODIUM 141 mmol/L (136-145); TOTAL PROTEIN 5.9 g/dL (6.4-8.2); eGFR NON BLACK RACES 52 (>60)
[2022-11-13] MEDS: PEPCID 20 MG VIAL 20 MG in NS 50 ML IV 50 ML IV SCH (08:03)
[2022-11-13] MEDS: CELEBREX PO SCH (08:04)
[2022-11-13] MEDS: CRESTOR TAB 10 MG PO SCH (08:04)
[2022-11-13] MEDS: INDERAL TAB 10 MG PO SCH (08:05)
[2022-11-13] MEDS: MORPHINE SULFATE INJ 2 MG INJ IVP PRN (08:05)
[2022-11-13] MEDS: EFFEXOR XR 75 MG CAP 24-HR PO SCH (08:05)
[2022-11-13] MEDS: PROTONIX INJ 40 MG VIAL IVP SCH (08:05)
[2022-11-13] MEDS: SYNTHROID 125 mcg TAB PO SCH (08:05)
[2022-11-13 08:06] VITALS: RESP 18
[2022-11-13] MEDS: NS 1,000 ML IV 1,000 ML IV SCH ×2 (08:13)
[2022-11-13] MEDS: LOVENOX INJ 40 MG SYR SC SCH (10:21)
[2022-11-13 13:03] VITALS: BP 132/81; PULSE 86; TEMP 98.1; O2SAT 98
== END 2022-11-13 12:20 | disposition home or self-care (01) ==
LOC: MED/SURG
PROVIDERS: ADMIT Internal Medicine; ATTEND Internal Medicine